=== PATIENT | female | born 1970 | race Caucasian/White ===

== ENCOUNTER 2017-11-18 11:03 | Inpatient (IN) ==
[2017-11-18] MEDS ORDERED: Ondansetron 4 MG/2 ML VIAL IVP PRN (12:36)
[2017-11-18] MEDS ORDERED: MORPHINE SUL Oral CONC 10 MG/0.5 ML ORAL.SYG SL PRN (12:36)
[2017-11-18] MEDS ORDERED: OXYCODONE Oral CONC 10 MG/0.5 ML ORAL.SYG SL PRN (12:39)
[2017-11-18] MEDS: 0.9 % Sodium Chloride 1,000 ML IVC SCH ×2 (13:10→21:33)
--- NOTE | 2017-11-18 13:51 | General Surg History&Physical ---
<CullenZachariah forrest R - Last Filed: 11/18/17 17:59> Date of Encounter: 11/18/17 Time of Encounter: 13:37 Assessment and Plan (1) Acute appendicitis Current Visit: No Status: Acute The assessment and plan as outlined above was discussed with the patient and/or family members who expressed understanding and agreement. All questions were answered. Patient reporting improvement in pain and nausea control with medication. Plan: Nonoperative management at this time, if possible, for significant periappendicular inflammation IV antibiotic-Zosyn IV fluids NPO po meds okay Comfort care and pain management PPI prophylaxis prn antiemetic ambulate ad yessy follow morning labs Qualifiers: Acute appendicitis type: with localized peritonitis Qualified Code(s): K35.3 - Acute appendicitis with localized peritonitis (2) DVT prophylaxis Current Visit: Yes Status: Acute The assessment and plan as outlined above was discussed with the patient and/or family members who expressed understanding and agreement. All questions were answered. Heparin 5000 units SQ Q12H (3) Seizure disorder Current Visit: Yes Status: Chronic The assessment and plan as outlined above was discussed with the patient and/or family members who expressed understanding and agreement. All questions were answered. Patient history of multiple seizures. Has been well controlled with medications , last seizure approximately 2 years ago. Plan: We will continue patient's home po medication (4) COPD (chronic obstructive pulmonary disease) Current Visit: Yes Status: Acute The assessment and plan as outlined above was discussed with the patient and/or family members who expressed understanding and agreement. All questions were answered. COPD controlled with Breo Ellipta inhaler at home Plan: Will start Symbicort BID DuoNeb available prn Qualifiers: Qualified Code(s): J44.9 - Chronic obstructive pulmonary disease, unspecified History of Present Illness Chief complaint: abdominal pain HPI: Ms. Gardner is a 47 year old female with history significant for COPD, seizures , CAD S/P stent placement. Presented for evaluation of abdominal pain 3 days duration, sharp in quality, located in the right lower abdomen and umbilical region. Associated anorexia, nausea without vomiting, and fevers. Last fever was yesterday measured at 101 Fahrenheit. No history of similar symptoms. Patient presented for evaluation to [place] ED. CT abdomen and pelvis was performed with findings of dilated appendix of up to 13 mm with significant induration of the surrounding mesenteric fat, suggestive of acute appendicitis. Leukocytosis at 17.3. Patient was transferred to [facility] for further evaluation and management. Patient was seen and evaluated at the bedside after arrival. She does report improved pain control with medication. Pain is worse with ambulation, improved with rest. Mild nausea. Denies vomiting, change in bowel habits, hematochezia, melena, dysuria. Past Med Surg Social Fam HX - Past Medical History Medical history: COPD, hyperlipidemia, seizures Psychiatric history: no psych history - Past Surgical History Surgical History: Additional surgical history: Aneurysm behind both eyes. Coronary artery stent - Social History Smoking Status: Current every day smoker Smokeless Tobacco Status: No Alcohol use: occasionally Drug use: none Medications and Allergies Dexlansoprazole [Dexilant] 60 mg PO DAILY 11/18/17 [History] Divalproex (12 HR) [Depakote (12 HR)] 500 mg PO BID 11/18/17 [History] Gabapentin [Neurontin] 600 mg PO TID 11/18/17 [History] Simvastatin [Zocor] 40 mg PO HS 11/18/17 [History] BuPROPion XL (24 HR) [Wellbutrin XL] 150 mg PO DAILY 11/19/17 [History] Calcium Carbonate/Vitamin D3 [Oyster Shell 250 mg + Vit D Tb] 1 tab PO BID 11/19 [History] Cholecalciferol (D-3) [Vitamin D] 5,000 unit PO DAILY 11/19/17 [History] Fluticasone/Vilanterol [Breo Ellipta 100-25 Mcg INH] 1 puff IH DAILY 11/19/17 [ History] Isosorbide DInitrate [Isosorbide Dinitrate] 20 mg PO DAILY 11/19/17 [History] Magnesium Oxide [Magnesium] 400 mg PO BID 11/19/17 [History] Meloxicam [Mobic] 7.5 mg PO DAILY 11/19/17 [History] Potassium Chloride [K-Tab ER] 20 meq PO DAILY 11/19/17 [History] 3 Allergy/AdvReac Type Severity Reaction Status Date / Time No Known Allergies Allergy Verified 11/19/17 16:34 Review of Systems All systems PM: The remainder of the systems were reviewed and are negative - Constitutional fever(s) - Gastrointestinal abdominal pain, dysphagia, loose stools (Lucid baseline), nausea, no change in bowel habits, no constipation, no diarrhea, no hematemesis, no hematochezia, no vomiting - Genitourinary Genitourinary: no dysuria, no urinary frequency, no urinary hesitancy General Surgery Exam Initial Vital Signs Temp Pulse Resp BP Pulse Ox 98.9 F 80 18 125/86 97 11/18/17 12:30 11/18/17 12:30 11/18/17 12:30 11/18/17 12:30 11/18/17 12:30 - General physical appearance well developed, well nourished, no distress, moderate pain, obese, other ( Hirsutism) - Eyes PERRL - ENT dry mucosa, atraumatic, normocephalic - Neck trachea midline - Respiratory normal expansion, normal respiratory effort, clear to auscultation - Cardiovascular Cardiovascular exam: Present: RRR - Abdomen Abdomen general surgery: Present: bowel sounds present, soft, tender, guarding, rebound, surgical scars (Well-healed prior section). Absent: distended Abdominal Tenderness: Present: RLQ - Genitourinary Present: other (No CVA tenderness) - Integumentary Integumentary general surgery: Present: warm and dry - Neurologic Present: CN 2-12 grossly intact - Musculoskeletal Present: normal posture - Psychiatric Psychiatric general surgery: Present: A&Ox3, speech is normal, memory intact Results - Labs All other labs normal. <Juvencio Krishna - Last Filed: 11/19/17 18:31> Date of Encounter: 11/18/17 Assessment and Plan (1) DVT prophylaxis Current Visit: Yes Status: Acute The assessment and plan as outlined above was discussed with the patient and/or family members who expressed understanding and agreement. All questions were answered. (2) Seizure disorder Current Visit: Yes Status: Chronic The assessment and plan as outlined above was discussed with the patient and/or family members who expressed understanding and agreement. All questions were answered. (3) COPD (chronic obstructive pulmonary disease) Current Visit: Yes Status: Acute The assessment and plan as outlined above was discussed with the patient and/or family members who expressed understanding and agreement. All questions were answered. Qualifiers: Qualified Code(s): J44.9 - Chronic obstructive pulmonary disease, unspecified (4) Perforated appendicitis Current Visit: Yes Status: Acute The assessment and plan as outlined above was discussed with the patient and/or family members who expressed understanding and agreement. All questions were answered. (5) Electrolyte imbalance Current Visit: Yes Status: Acute The assessment and plan as outlined above was discussed with the patient and/or family members who expressed understanding and agreement. All questions were answered. History of Present Illness HPI: Ms. Gardner is a 47 year old female Review of Systems All systems PM: The remainder of the systems were reviewed and are negative General Surgery Exam Initial Vital Signs Temp Pulse Resp BP Pulse Ox 98.9 F 80 18 125/86 97 11/18/17 12:30 11/18/17 12:30 11/18/17 12:30 11/18/17 12:30 11/18/17 12:30 Results - Labs 11/19/17 03:51 11/19/17 03:51 Abnormal lab results WBC 13.6 K/mcL (4.3-11.1) H 11/19/17 03:51 RBC 3.66 M/mcL (3.82-4.97) L 11/19/17 03:51 Hgb 11.4 g/dL (11.5-15.4) L D 11/19/17 03:51 Hct 35.0 % (35.3-44.9) L 11/19/17 03:51 Neutrophils # 9.3 K/mcL (1.6-8.9) H 11/19/17 03:51 PT 13.2 Seconds (9.4-12.1) H 11/19/17 03:51 Potassium 3.0 mEq/L (3.5-5.1) L 11/19/17 03:51 Chloride 113 mEq/L (98-107) H 11/19/17 03:51 Carbon Dioxide 21 mEq/L (23-29) L 11/19/17 03:51 Creatinine 0.56 mg/dL (0.60-1.20) L 11/19/17 03:51 Glucose 67 mg/dL (70-105) L 11/19/17 03:51 Calcium 7.9 mg/dL (8.6-10.3) L 11/19/17 03:51 Diabetes panel 11/19/17 Range/Units 03:51 Sodium 142 (136-145) mEq/L Potassium 3.0 L (3.5-5.1) mEq/L Chloride 113 H (98-107) mEq/L Carbon Dioxide 21 L (23-29) mEq/L BUN 10 (6-20) mg/dL Creatinine 0.56 L (0.60-1.20) mg/dL Glucose 67 L (70-105) mg/dL Calcium 7.9 L (8.6-10.3) mg/dL Calcium panel 11/19/17 Range/Units 03:51 Calcium 7.9 L (8.6-10.3) mg/dL Pituitary panel 11/19/17 Range/Units 03:51 Sodium 142 (136-145) mEq/L Potassium 3.0 L (3.5-5.1) mEq/L Chloride 113 H (98-107) mEq/L Carbon Dioxide 21 L (23-29) mEq/L BUN 10 (6-20) mg/dL Creatinine 0.56 L (0.60-1.20) mg/dL Glucose 67 L (70-105) mg/dL Calcium 7.9 L (8.6-10.3) mg/dL Adrenal panel 11/19/17 Range/Units 03:51 Sodium 142 (136-145) mEq/L Potassium 3.0 L (3.5-5.1) mEq/L Chloride 113 H (98-107) mEq/L Carbon Dioxide 21 L (23-29) mEq/L BUN 10 (6-20) mg/dL Creatinine 0.56 L (0.60-1.20) mg/dL Glucose 67 L (70-105) mg/dL Calcium 7.9 L (8.6-10.3) mg/dL All other labs normal. - Attending Attestation I examined this patient and my medical decision-making was reviewed with the Resident Physician. I agree with the documented findings, disposition and treatment plan as described except to the extent set forth below. I reviewed the above assessment and evaluation and agree with the above plan. Three-day history of umbilical and right lower quadrant abdominal pain sharp in nature. No vomiting and no rectal bleeding noted. CT scan shows evidence of acute appendicitis with evidence of a phlegmon. The most appropriate course would be to attempt IV antibiotics to help calm the inflammatory process down given the extensive inflammation and the concern for an extensive surgical procedure versus a colectomy if surgery was necessary. We will continue to monitor closely. If patients source to tolerate this process then we may slowly begin to advance her diet over the next 24-48 hrs.
[2017-11-18] MEDS ORDERED: Ipratropium/Albuterol Neb 3 ML IH PRN (15:26)
[2017-11-18] MEDS: Ketorolac 30 MG/ML VIAL IVP SCH ×2 (15:32→17:35)
[2017-11-18] MEDS: Piperacillin/Tazobactam 3.375 GM in 0.9 % Sodium Chloride Mini Bag 100 ML IVPB SCH (15:33)
[2017-11-18] MEDS: *HR* Heparin 5,000 UNIT/ML VIAL SQ SCH (17:33)
[2017-11-18] MEDS ORDERED: Ketorolac 30 MG/ML VIAL IM SCH (18:00)
[2017-11-18] MEDS: Budesonide/Formoterol 160/4.5 1 PUFF INH IH SCH (20:07)
[2017-11-18] MEDS ORDERED: Gabapentin 300 MG CAPSULE PO SCH (21:00)
[2017-11-18] MEDS: Gabapentin 300 MG CAPSULE PO SCH (21:32)
[2017-11-18] MEDS: Divalproex (12 HR) 500 MG TABLET PO SCH (21:32)
[2017-11-19] MEDS: Ketorolac 30 MG/ML VIAL IVP SCH ×4 (00:11→18:02)
[2017-11-19] MEDS: Piperacillin/Tazobactam 3.375 GM in 0.9 % Sodium Chloride Mini Bag 100 ML IVPB SCH ×3 (00:11→18:01)
[2017-11-19 04:20] LABS: Basophils % 0.3 %; Eosinophils # 0.1 K/mcL (0.0-0.6); Eosinophils % 0.6 %; Hemoglobin 11.4 g/dL (11.5-15.4); Immature Granulocytes % 0.4 % (0-4); Lymphocytes % 21.9 %; Mean Corpuscular HGB Conc 32.6 g/dL (31.6-35.5); Mean Corpuscular Hemoglobin 31.1 pg (28.0-33.3); Mean Corpuscular Volume 95.6 fL (83.0-100.0); Mean Platelet Volume 10.1 fL (9.4-12.4); Monocytes # 1.2 K/mcL (0.0-1.3); Monocytes % 8.4 %; Neutrophils # 9.3 K/mcL (1.6-8.9); Platelet Count 194 K/mcL (140-400); Red Blood Count 3.66 M/mcL (3.82-4.97); Red Cell Distribution Width 13.2 % (11.5-14.5); Segmented Neutrophils % 68.4 %
[2017-11-19 04:35] LABS: INR 1.2; Prothrombin Time 13.2 Seconds (9.4-12.1)
[2017-11-19 04:44] LABS: BUN/Creatinine Ratio 18 (6-26); Blood Urea Nitrogen 10 mg/dL (6-20); Calcium 7.9 mg/dL (8.6-10.3); Carbon Dioxide 21 mEq/L (23-29); Chloride 113 mEq/L (98-107); Glucose 67 mg/dL (70-105); Osmolality,Calculated 291 (280-300); Sodium 142 mEq/L (136-145); eGFR For Non-African Americans > 60 (> 60)
[2017-11-19] MEDS: *HR* Heparin 5,000 UNIT/ML VIAL SQ SCH ×2 (05:52→18:00)
[2017-11-19] MEDS: 0.9 % Sodium Chloride 1,000 ML IVC SCH (05:53)
[2017-11-19] MEDS: Budesonide/Formoterol 160/4.5 1 PUFF INH IH SCH ×2 (07:13→20:29)
[2017-11-19] MEDS: Divalproex (12 HR) 500 MG TABLET PO SCH ×2 (08:17→21:04)
[2017-11-19] MEDS: Pantoprazole 40 MG VIAL IVP SCH (08:17)
[2017-11-19] MEDS: Gabapentin 300 MG CAPSULE PO SCH ×2 (08:17→21:04)
[2017-11-19] MEDS ORDERED: 0.9 % Sodium Chloride 1,000 ML IVC SCH (11:41)
--- NOTE | 2017-11-19 11:44 | General Surgery Progress Note ---
<JalenAngie Christian - Last Filed: 11/19/17 11:42> Date of Encounter: 11/19/17 Time of Encounter: 11:42 - Assessment and Plan (1) Perforated appendicitis Current Visit: Yes Status: Acute Patient's exam is improved from yesterday. Continue IV antibiotics for another 24 to 48 hours pending clinical course. Okay to start clear liquid diet. Will reduce maintenance IV fluids ambulate as tolerated continue G.I. and DVT prophylaxis incentive spirometry 10 times Q hour while awake serial abdominal exams repeat a.m. labs (2) DVT prophylaxis Current Visit: Yes Status: Acute Heparin 5000 units sub Q BID EP CDs ambulate (3) Seizure disorder Current Visit: Yes Status: Chronic Continue home medications and seizure precautions (4) COPD (chronic obstructive pulmonary disease) Current Visit: Yes Status: Acute Schedule duonebs and aggressive pulmonary toileting Qualifiers: Qualified Code(s): J44.9 - Chronic obstructive pulmonary disease, unspecified (5) Electrolyte imbalance Current Visit: Yes Status: Acute Replace potassium Subjective Patient reports: no new complaints, feels better, pain is less, voiding w/o difficulty, flatus, no bowel movement, afebrile Objective Vital Signs - Last 8 Hours Temp Pulse Resp BP Pulse Ox 11/19/17 10:19 98.2 F 87 15 125/74 96 11/19/17 07:15 18 97 11/19/17 06:53 97.9 F 78 15 117/78 95 11/19/17 04:32 98.2 F 80 16 138/83 96 Intake and Output 11/18/17 11/19/17 11/19/17 23:59 07:59 15:59 Intake Total 1100 / 1100 1100 / 1100 0 / 0 Output Total 0 / 0 450 / 450 Balance 1100 / 1100 650 / 650 0 / 0 Intake: IV Fluids 1100 / 1100 1100 / 1100 0.9 % Sodium Chloride 1,000 ML 1000 / 1000 1000 / 1000 @ 125 mls/hr IVC .Q8H ERIC Rx#: [id number] Zosyn 3.375 GM In 0.9 % Sodium 100 / 100 100 / 100 Chloride (Mini-Bag +) 100 ML @ 25 mls/hr IVPB Q8HR ERIC Rx#: [id number] Oral 0 / 0 0 / 0 0 / 0 Output: Urine 0 / 0 450 / 450 Other: Meal NPO DINNER NPO Percent of Meal Consumed 0% 0% # Voids 1 # Bowel Movements 0 0 Weight 108.9 kg Blood Glucose* 77 81 Patient Weight 11/19/17 23:59 Weight 108.9 kg - General physical appearance no distress, no pain - ENT normal nares, normal mucosa, poor [facility], dentures - Cardiovascular Cardiovascular exam: Present: RRR - Abdomen Abdomen: Present: bowel sounds present, soft, non tender - Integumentary no rash, no growths, no abnormal pigmentation - Neurologic CN 2-12 grossly intact, normal coordination - Musculoskeletal normal gait, normal posture - Psychiatric oriented to time, oriented to person, oriented to place, speech is normal, memory intact - Labs 11/19/17 03:51 11/19/17 03:51 Diabetes panel 11/19/17 Range/Units 03:51 Sodium 142 (136-145) mEq/L Potassium 3.0 L (3.5-5.1) mEq/L Chloride 113 H (98-107) mEq/L Carbon Dioxide 21 L (23-29) mEq/L BUN 10 (6-20) mg/dL Creatinine 0.56 L (0.60-1.20) mg/dL Glucose 67 L (70-105) mg/dL Calcium 7.9 L (8.6-10.3) mg/dL Calcium panel 11/19/17 Range/Units 03:51 Calcium 7.9 L (8.6-10.3) mg/dL Pituitary panel 11/19/17 Range/Units 03:51 Sodium 142 (136-145) mEq/L Potassium 3.0 L (3.5-5.1) mEq/L Chloride 113 H (98-107) mEq/L Carbon Dioxide 21 L (23-29) mEq/L BUN 10 (6-20) mg/dL Creatinine 0.56 L (0.60-1.20) mg/dL Glucose 67 L (70-105) mg/dL Calcium 7.9 L (8.6-10.3) mg/dL Adrenal panel 11/19/17 Range/Units 03:51 Sodium 142 (136-145) mEq/L Potassium 3.0 L (3.5-5.1) mEq/L Chloride 113 H (98-107) mEq/L Carbon Dioxide 21 L (23-29) mEq/L BUN 10 (6-20) mg/dL Creatinine 0.56 L (0.60-1.20) mg/dL Glucose 67 L (70-105) mg/dL Calcium 7.9 L (8.6-10.3) mg/dL Consult Discharge Plan - Plan Referrals: Jose Elias Juan DO [Non-Partnered Physician] - <Juvencio Krishna Belle - Last Filed: 11/19/17 19:31> Date of Encounter: 11/19/17 - Assessment and Plan (1) DVT prophylaxis Current Visit: Yes Status: Acute (2) Seizure disorder Current Visit: Yes Status: Chronic (3) COPD (chronic obstructive pulmonary disease) Current Visit: Yes Status: Acute Qualifiers: Qualified Code(s): J44.9 - Chronic obstructive pulmonary disease, unspecified (4) Perforated appendicitis Current Visit: Yes Status: Acute (5) Electrolyte imbalance Current Visit: Yes Status: Acute Objective Vital Signs - Last 8 Hours Temp Pulse Resp BP Pulse Ox 11/19/17 19:28 98.8 F 88 15 136/86 96 11/19/17 14:13 98.2 F 81 15 133/84 97 Intake and Output 11/19/17 11/19/17 11/19/17 07:59 15:59 23:59 Intake Total 1100 / 1100 100 / 100 720 / 720 Output Total 450 / 450 Balance 650 / 650 100 / 100 720 / 720 Intake: IV Fluids 1100 / 1100 100 / 100 0.9 % Sodium Chloride 1,000 ML 1000 / 1000 @ 125 mls/hr IVC .Q8H ERIC Rx#: [id number] Zosyn 3.375 GM In 0.9 % Sodium 100 / 100 100 / 100 Chloride (Mini-Bag +) 100 ML @ 25 mls/hr IVPB Q8HR ERIC Rx#: [id number] Oral 0 / 0 0 / 0 720 / 720 Output: Urine 450 / 450 Other: Meal NPO Clear Liq Percent of Meal Consumed 0% # Voids 1 1 # Bowel Movements 0 Weight 108.9 kg Blood Glucose* 77 81 Patient Weight 11/19/17 23:59 Weight 108.9 kg - Labs 11/19/17 03:51 11/19/17 03:51 Diabetes panel 11/19/17 Range/Units 03:51 Sodium 142 (136-145) mEq/L Potassium 3.0 L (3.5-5.1) mEq/L Chloride 113 H (98-107) mEq/L Carbon Dioxide 21 L (23-29) mEq/L BUN 10 (6-20) mg/dL Creatinine 0.56 L (0.60-1.20) mg/dL Glucose 67 L (70-105) mg/dL Calcium 7.9 L (8.6-10.3) mg/dL Calcium panel 11/19/17 Range/Units 03:51 Calcium 7.9 L (8.6-10.3) mg/dL Pituitary panel 11/19/17 Range/Units 03:51 Sodium 142 (136-145) mEq/L Potassium 3.0 L (3.5-5.1) mEq/L Chloride 113 H (98-107) mEq/L Carbon Dioxide 21 L (23-29) mEq/L BUN 10 (6-20) mg/dL Creatinine 0.56 L (0.60-1.20) mg/dL Glucose 67 L (70-105) mg/dL Calcium 7.9 L (8.6-10.3) mg/dL Adrenal panel 11/19/17 Range/Units 03:51 Sodium 142 (136-145) mEq/L Potassium 3.0 L (3.5-5.1) mEq/L Chloride 113 H (98-107) mEq/L Carbon Dioxide 21 L (23-29) mEq/L BUN 10 (6-20) mg/dL Creatinine 0.56 L (0.60-1.20) mg/dL Glucose 67 L (70-105) mg/dL Calcium 7.9 L (8.6-10.3) mg/dL - Attending Attestation I have personally performed a face to face evaluation on this patient. I have reviewed and agree with the care plan. History and Exam by me shows: I reviewed the above assessment and evaluation and agree with the above plan. Patient states that she is not having any abdominal pain at this time. No nausea or vomiting and tolerating clears this morning and afternoon. On examination she is minimally tender to palpation. Will advance her diet first full liquids in the morning. Likely will be able to be advanced to soft foods and possible discharge tomorrow afternoon.
[2017-11-19] MEDS ORDERED: D5 IVPB ONE (11:46)
[2017-11-19] MEDS ORDERED: POTASSIUM CHLORIDE IVPB ONE (11:46)
[2017-11-19] MEDS ORDERED: WATER IVPB ONE (11:46)
[2017-11-19] MEDS ORDERED: LIDOCAINE 1% IVPB ONE (11:46)
[2017-11-19] MEDS ORDERED: Potassium Chloride 40 MEQ, Lidocaine 1% 2 ML in D5% in Water 500 ML IVPB ONE (13:44)
[2017-11-20] MEDS: Piperacillin/Tazobactam 3.375 GM in 0.9 % Sodium Chloride Mini Bag 100 ML IVPB SCH ×2 (00:42→09:19)
[2017-11-20] MEDS: Ketorolac 30 MG/ML VIAL IVP SCH ×3 (00:43→11:35)
[2017-11-20 04:43] LABS: Hematocrit 33.1 % (35.3-44.9); Hemoglobin 10.7 g/dL (11.5-15.4); Mean Corpuscular HGB Conc 32.3 g/dL (31.6-35.5); Mean Corpuscular Hemoglobin 30.7 pg (28.0-33.3); Mean Corpuscular Volume 94.8 fL (83.0-100.0); Mean Platelet Volume 10.3 fL (9.4-12.4); Platelet Count 211 K/mcL (140-400); Red Blood Count 3.49 M/mcL (3.82-4.97); Red Cell Distribution Width 13.2 % (11.5-14.5); Segmented Neutrophils % 64.2 %
[2017-11-20 04:44] LABS: Basophils % 0.3 %; Eosinophils # 0.1 K/mcL (0.0-0.6); Immature Granulocytes % 0.3 % (0-4); Lymphocytes # 2.5 K/mcL (0.6-4.6); Lymphocytes % 25.6 %; Monocytes # 0.8 K/mcL (0.0-1.3); Monocytes % 8.6 %; Neutrophils # 6.2 K/mcL (1.6-8.9)
[2017-11-20 04:53] LABS: BUN/Creatinine Ratio 13 (6-26); Blood Urea Nitrogen 7 mg/dL (6-20); Calcium 8.2 mg/dL (8.6-10.3); Carbon Dioxide 22 mEq/L (23-29); Chloride 115 mEq/L (98-107); Glucose 91 mg/dL (70-105); Osmolality,Calculated 294 (280-300); Potassium 3.2 mEq/L (3.5-5.1); Sodium 143 mEq/L (136-145); eGFR For Non-African Americans > 60 (> 60)
[2017-11-20] MEDS: *HR* Heparin 5,000 UNIT/ML VIAL SQ SCH (06:00)
[2017-11-20 06:44] VITALS: BP 138/69
[2017-11-20] MEDS ORDERED: Potassium Chloride 40 MEQ, Lidocaine 1% 2 ML in D5% in Water 500 ML IVPB ONE (08:23)
--- NOTE | 2017-11-20 08:37 | Discharge Summary ---
Date of Encounter: 11/20/17 Time of Encounter: 08:15 - Discharge Diagnosis (1) Perforated appendicitis Priority: Primary Status: Acute (2) DVT prophylaxis Priority: Secondary Status: Acute (3) Seizure disorder Priority: Secondary Status: Chronic (4) COPD (chronic obstructive pulmonary disease) Priority: Secondary Status: Acute Qualifiers: COPD type: unspecified COPD Qualified Code(s): J44.9 - Chronic obstructive pulmonary disease, unspecified (5) Electrolyte imbalance Priority: Secondary Status: Acute General Surgery Exam Initial Vital Signs Temp Pulse Resp BP Pulse Ox 98.9 F 80 18 125/86 97 11/18/17 12:30 11/18/17 12:30 11/18/17 12:30 11/18/17 12:30 11/18/17 12:30 Vital Signs Temp Pulse Resp BP Pulse Ox 11/20/17 06:43 97.6 F 76 15 138/69 97 11/20/17 04:23 98.1 F 77 14 144/88 98 11/19/17 20:29 16 98 11/19/17 19:28 98.8 F 88 15 136/86 96 11/19/17 14:13 98.2 F 81 15 133/84 97 11/19/17 10:19 98.2 F 87 15 125/74 96 Intake and Output 11/19/17 11/20/17 11/20/17 23:59 07:59 15:59 Intake Total 1542 / 1542 300 / 300 Output Total 200 / 200 300 / 300 Balance 1342 / 1342 0 / 0 Intake: IV Fluids 822 / 822 100 / 100 Zosyn 3.375 GM In 0.9 % Sodium 100 / 100 100 / 100 Chloride (Mini-Bag +) 100 ML @ 25 mls/hr IVPB Q8HR ERIC Rx#: [id number] Potassium Chloride 10 mEq/100mL 200 / 200 10 meq In 100 ml @ 100 mls/hr IVPB Q1H ERIC Rx#:[id number] KCl 40 MEQ Xylocaine 2 ML In 522 / 522 Dextrose 5% 500 ML @ 130.5 mls/ hr IVPB ONCE ONE Rx#:[id number] Oral 720 / 720 200 / 200 Output: Urine 200 / 200 300 / 300 Other: Meal Clear Liq Stool Size Moderate Stool Consistency soft Stool Color Brown # Voids 2 # Bowel Movements 0 Weight 108.8 kg Patient Weight 11/20/17 23:59 Weight 108.8 kg VITAL SIGNS: Reviewed. See [facility] GENERAL: In no apparent distress. HEENT: Normocephalic, atraumatic, pupils are equal and reactive, extraocular motions intact, oropharynx is pink and moist, edentulous, there is no neck adenopathy or JVD noted. CHEST/RESPIRATORY: The thorax is free from signs of trauma. Lung sounds: clear to auscultation, normal respiratory effort CARDIAC: Regular rate and rhythm. Normal S1 and S2, without murmurs, gallops, or rubs. VASCULAR: No Edema. 2+ peripheral pulses. ABDOMEN: soft, active bowel sounds, nontender MUSCULOSKELETAL: Good range of motion of all major joints. Extremities without clubbing, cyanosis or edema. NEUROLOGIC EXAM: Alert and oriented x 3. Speech normal. Follows commands. PSYCHIATRIC: Mood normal. SKIN: No rash or lesions. - Hospital Course Hospital course: Ms. Gardner is a 47 year old female who was admitted for right lower quadrant pain. Her imaging was consistent with perforated appendicitis with phlegmon. She was treated with IV antibiotics and supportive care. She states her abdominal discomfort is completely resolved. She is afebrile and her vital signs are stable. She is tolerating her diet without nausea or vomiting and her white blood cell count has normalized. We will begin discharge planning to home with a follow-up in the office in approximately 4 weeks to schedule an elective laparoscopic appendectomy. - Time Spent with Patient Total time spent providing and/or coordinating discharge services: - Discharge Medications Prescriptions: Amoxicillin/Clavulanate [Augmentin] 875 mg PO BIDWM #14 tablet Home Medications: Dexlansoprazole [Dexilant] 60 mg PO DAILY 11/18/17 [History] Divalproex (12 HR) [Depakote (12 HR)] 500 mg PO BID 11/18/17 [History] Gabapentin [Neurontin] 600 mg PO TID 11/18/17 [History] Simvastatin [Zocor] 40 mg PO HS 11/18/17 [History] BuPROPion XL (24 HR) [Wellbutrin Xl] 150 mg PO DAILY 11/19/17 [History] Calcium Carbonate/Vitamin D3 [Oyster Shell 250 mg + Vit D Tb] 1 tab PO BID 11/19 [History] Cholecalciferol (D-3) [Vitamin D] 5,000 unit PO DAILY 11/19/17 [History] Fluticasone/Vilanterol [Breo Ellipta 100-25 Mcg INH] 1 puff IH DAILY 11/19/17 [ History] Isosorbide DInitrate [Isosorbide Dinitrate] 20 mg PO DAILY 11/19/17 [History] Magnesium Oxide [Magnesium] 400 mg PO BID 11/19/17 [History] Meloxicam [Mobic] 7.5 mg PO DAILY 11/19/17 [History] Potassium Chloride [K-Tab ER] 20 meq PO DAILY 11/19/17 [History] Amoxicillin/Clavulanate [Augmentin] 875 mg PO BIDWM #14 tablet 11/20/17 [Rx] Allergies/Adverse Reactions: 3 Allergy/AdvReac Type Severity Reaction Status Date / Time No Known Allergies Allergy Verified 11/19/17 16:34 Date of admission: 11/18/17 15:31 Primary care physician: PCP NONE Discharging clinician: Juvencio Rao) Anticipated date of discharge: 11/20/17 Labs on day of discharge: Labs from last 24 hours 11/20/17 11/20/17 11/19/17 03:47 03:47 10:55 WBC 9.7 RBC 3.49 L Hgb 10.7 L Hct 33.1 L MCV 94.8 MCH 30.7 MCHC 32.3 RDW 13.2 Plt Count 211 MPV 10.3 Immature Gran % 0.3 Seg Neutrophils % 64.2 Lymphocytes % 25.6 Monocytes % 8.6 Eosinophils % 1.0 Basophils % 0.3 Neutrophils # 6.2 Lymphocytes # 2.5 Monocytes # 0.8 Eosinophils # 0.1 Basophils # 0.0 Sodium 143 Potassium 3.2 L Chloride 115 H Carbon Dioxide 22 L BUN 7 Creatinine 0.53 L Est GFR ( Amer) > 60 Est GFR (Non-Af Amer) > 60 BUN/Creatinine Ratio 13 Glucose 91 POC Glucose 81 Calculated Osmolality 294 Calcium 8.2 L - Patient Status Disposition: Home, Self-Care Condition: Good Functional capacity at discharge: independent ambulation Overall status at discharge: patient is progressing back to baseline - Discharge Instructions Instructions: Appendicitis (DC) Follow Up With: Jose Elias Juan DO [Non-Partnered Physician] - Juvencio Krishna MD [Partnered Physician] - 12/18/17 9:00 am (Schedule laproscopic appendectomy) Additional Instructions: Take your antibiotics as directed. Do not stop your antibiotics without talking to your provider. If you were prescribed Metronidazole, Do not drink alcohol while taking metronidazole. Drinking alcohol while taking metronidazole can cause violent abdominal pain and vomiting. Refrain from alcohol for 48 hours after stopping metronidazole. Return/call the office if you have fever higher than 100.5 associated with new or worsening abdominal discomfort. Otherwise follow-up as directed to schedule laparoscopic appendectomy. - Diet and Activity Activity: increase activity as tolerated Diet: advance to your usual diet
[2017-11-20] MEDS: Divalproex (12 HR) 500 MG TABLET PO SCH (09:19)
[2017-11-20] MEDS: Gabapentin 300 MG CAPSULE PO SCH (09:19)
[2017-11-20] MEDS: Pantoprazole 40 MG VIAL IVP SCH (09:20)
[2017-11-20] MEDS: Budesonide/Formoterol 160/4.5 1 PUFF INH IH SCH (10:54)
== END 2017-11-20 14:10 | disposition home or self-care (01) | DRG 372 ==
LOC: 3ANU
PROVIDERS: ADMIT Surgery; ATTEND Surgery

== ENCOUNTER 2018-02-22 14:42 | Observation (INO) ==
--- NOTE | 2018-02-22 17:27 | General Surg History&Physical ---
Date of Encounter: 02/22/18 Time of Encounter: 17:24 Assessment and Plan (1) Leukocytosis Current Visit: Yes Status: Acute The assessment and plan as outlined above was discussed with the patient and/or family members who expressed understanding and agreement. All questions were answered. continue with abx, zosyn Qualifiers: Leukocytosis type: unspecified Qualified Code(s): D72.829 - Elevated white blood cell count, unspecified (2) CAD (coronary artery disease) Current Visit: Yes Status: Chronic The assessment and plan as outlined above was discussed with the patient and/or family members who expressed understanding and agreement. All questions were answered. patient with CAD and history cardiac stent placement, not on aspirin Qualifiers: Coronary Disease-Associated Artery/Lesion type: [place] artery [place] vs. transplanted heart: [place] heart Associated angina: without angina Qualified Code(s): I25.10 - Atherosclerotic heart disease of [place] coronary artery without angina pectoris (3) DVT prophylaxis Current Visit: No Status: Acute The assessment and plan as outlined above was discussed with the patient and/or family members who expressed understanding and agreement. All questions were answered. EPCD (4) COPD (chronic obstructive pulmonary disease) Current Visit: No Status: Acute The assessment and plan as outlined above was discussed with the patient and/or family members who expressed understanding and agreement. All questions were answered. pulmonary toilet, IS, aerosols Qualifiers: COPD type: unspecified COPD Qualified Code(s): J44.9 - Chronic obstructive pulmonary disease, unspecified (5) Acute appendicitis Current Visit: No Status: Acute The assessment and plan as outlined above was discussed with the patient and/or family members who expressed understanding and agreement. All questions were answered. discussed with patient I have personally reviewed her CT images and she has recurrent appendicitis. Will plan laparoscopic appendectomy, possible open, risks and benefits discussed and she wishes to proceed npo prn pain control gi/dvt prophylaxis antibiotics check ekg/ test antiemetics prn ivf hydration ok continue home meds Qualifiers: Acute appendicitis type: with localized peritonitis Appendicitis gangrene presence: without gangrene Appendicitis perforation presence: without perforation Appendicitis abscess presence: without abscess Qualified Code(s): K35.30 - Acute appendicitis with localized peritonitis, without perforation or gangrene History of Present Illness Chief complaint: rlq abdominal pain HPI: Ms. Gardner is a 47 year old female with acute uncomplicated appendicitis in November of 2017 treated conservatively with antibiotics. Patient had improved. This am she had acute onset sharp stabbing RLQ pain without radiation similar to the pain she experienced in november. Some nausea, no emesis. No fevers, chills or night sweats. No dysuria. She proceeded to [facility] where a CT scan was done showing recurrent acute appendicitis. She was transfered to [facility] for further care. History of CAD, cardiac stents, aneurysms (b/l craniotomies?), history seizures - last seizure 2005 per patient. Past Med Surg Social Fam HX - Past Medical History Source: patient Medical history: COPD, coronary artery disease, GERD, hyperlipidemia, kidney stones, seizures, other ("aneurysms behind both eyes", obesity, hx appendicitis -treated conservatively) Psychiatric history: no psych history - Past Surgical History Surgical History: (x2), other (bilateral craniotomies/aneurysm surgery, cardiac cath with stent placement) Additional surgical history: Aneurysm behind both eyes. Coronary artery stent - Social History Smoking Status: Current every day smoker Smokeless Tobacco Status: No Alcohol use: occasionally Drug use: none - Family History Grandmother History Unknown: Yes Medications and Allergies Dexlansoprazole [Dexilant] 60 mg PO DAILY 11/18/17 [History] Divalproex (12 HR) [Depakote (12 HR)] 500 mg PO BID 11/18/17 [History] Gabapentin [Neurontin] 600 mg PO TID 11/18/17 [History] Simvastatin [Zocor] 40 mg PO HS 11/18/17 [History] BuPROPion XL (24 HR) [Wellbutrin Xl] 150 mg PO DAILY 11/19/17 [History] Calcium Carbonate/Vitamin D3 [Oyster Shell 250 mg + Vit D Tb] 1 tab PO BID 11/19/17 [History] Cholecalciferol (D-3) [Vitamin D] 5,000 unit PO DAILY 11/19/17 [History] Fluticasone/Vilanterol [Breo Ellipta 100-25 Mcg INH] 1 puff IH DAILY 11/19/17 [History] Isosorbide DInitrate [Isosorbide Dinitrate] 20 mg PO DAILY 11/19/17 [History] Magnesium Oxide [Magnesium] 400 mg PO BID 11/19/17 [History] Meloxicam [Mobic] 7.5 mg PO DAILY 11/19/17 [History] Potassium Chloride [K-Tab ER] 20 meq PO DAILY 11/19/17 [History] Allergy/AdvReac Type Severity Reaction Status Date / Time No Known Allergies Allergy Verified 11/19/17 16:34 Review of Systems All systems PM: reviewed and no additional remarkable complaints except as stated All systems PM: The remainder of the systems were reviewed and are negative General Surgery Exam Initial Vital Signs Temp Pulse Resp BP Pulse Ox 99.1 F 88 18 115/78 98 02/22/18 16:15 02/22/18 16:15 02/22/18 16:15 02/22/18 16:15 02/22/18 16:15 - General physical appearance well developed, well nourished, no distress, obese - Eyes PERRL, normal ocular movement - ENT normal mucosa - Neck other (hirsuitism) - Respiratory normal expansion, clear to auscultation, other (audible wheezing) - Cardiovascular Cardiovascular exam: Present: RRR, no murmurs/rubs/gallops - Abdomen Abdomen general surgery: Present: bowel sounds present, soft, tender. Absent: distended, guarding, rebound Abdominal Tenderness: Present: RLQ - Integumentary Integumentary general surgery: Present: warm and dry, no abnormal pigmentation - Neurologic Present: CN 2-12 grossly intact - Musculoskeletal Present: normal gait, normal posture - Psychiatric Psychiatric general surgery: Present: A&Ox3, speech is normal Results - Labs All other labs normal. - Imaging CT scan - abdomen: report reviewed, image reviewed CT scan - pelvis: report reviewed, image reviewed (WBC 15.8, Hb 15.5, plt 201, Cr 0.69)
[2018-02-22] MEDS ORDERED: Ondansetron 4 MG/2 ML VIAL IVP PRN (17:36)
[2018-02-22] MEDS ORDERED: *HR* Metoprolol 5 MG/5 ML VIAL IVP PRN ×2 (17:36→20:42)
[2018-02-22] MEDS ORDERED: Naloxone 0.4 MG/ML INJ IVP PRN ×2 (17:36→20:42)
[2018-02-22] MEDS ORDERED: *HR* Promethazine 25 MG/ML VIAL IVP PRN ×2 (17:36→20:42)
[2018-02-22] MEDS ORDERED: OXYCODONE Oral CONC 10 MG/0.5 ML ORAL.SYG SL PRN ×2 (17:38→20:42)
[2018-02-22] MEDS ORDERED: *HR* OxyCODONE/APAP 5/325 TABLET PO PRN (17:38)
--- NOTE | 2018-02-22 17:42 | Anesthesia Evaluation PreOp ---
Date of Encounter: 02/22/18 Time of Encounter: 18:28 - Past History Planned Operation: Laparoscopic appendectomy Cardiac History: HTN, Hyperlipidemia, Cardiac Stent Pulmonary History: Smoker, COPD CANT HOOKER History: Seizures, Other (brain aneurysms) Other Medical History: Renal (stones), GERD, Other (BMI 44) Anesthesia History: No Prior Anesthetic Complications, Past Anesthesia (c- section x2, brain aneurysm surgery x2, tubal) Alcohol Use: occasionally Drug use: none Medications and Allergies Dexlansoprazole [Dexilant] 60 mg PO DAILY 11/18/17 [History] Divalproex (12 HR) [Depakote (12 HR)] 500 mg PO BID 11/18/17 [History] Gabapentin [Neurontin] 600 mg PO TID 11/18/17 [History] Simvastatin [Zocor] 40 mg PO HS 11/18/17 [History] BuPROPion XL (24 HR) [Wellbutrin Xl] 150 mg PO DAILY 11/19/17 [History] Calcium Carbonate/Vitamin D3 [Oyster Shell 250 mg + Vit D Tb] 1 tab PO BID 11/09 03/28 [History] Cholecalciferol (D-3) [Vitamin D] 5,000 unit PO DAILY 11/19/17 [History] Fluticasone/Vilanterol [Breo Ellipta 100-25 Mcg INH] 1 puff IH DAILY 11/19/17 [History] Isosorbide DInitrate [Isosorbide Dinitrate] 20 mg PO DAILY 11/19/17 [History] Magnesium Oxide [Magnesium] 400 mg PO BID 11/19/17 [History] Meloxicam [Mobic] 7.5 mg PO DAILY 11/19/17 [History] Potassium Chloride [K-Tab ER] 20 meq PO DAILY 11/19/17 [History] Allergy/AdvReac Type Severity Reaction Status Date / Time No Known Allergies Allergy Verified 11/19/17 16:34 - Meds/Allergy Pre-op Review Medications Reviewed: Yes Allergies Reviewed: Yes Beta Blockers on Current Med List: No Anesthesia Results - Labs Laboratory Tests 02/22/18 02/22/18 14:07 14:07 WBC 15.8 H Hgb 15.5 H Hct 46.9 H Plt Count 201 Sodium 140 Potassium 4.3 Chloride 103 Carbon Dioxide 28 BUN 15 Creatinine 0.69 Est GFR ( Amer) > 60 Est GFR (Non-Af Amer) > 60 BUN/Creatinine Ratio 22 Glucose 121 H Calculated Osmolality 292 Calcium 9.1 Laboratory Tests 02/22/18 17:25 Urine Test Negative Anesthesia Exam Last Vital Signs Temp 99.1 F 02/22/18 16:15 Pulse 88 02/22/18 16:15 Resp 18 02/22/18 16:15 BP 115/78 02/22/18 16:15 Pulse Ox 98 02/22/18 16:15 Weight: 112 kg NPO (# of Hours): > 8 hrs - HEENT Pupil (Motor): Pupils equal, EOMI Mallampati: III Teeth: Edentulous Oral Opening: Less than or equal to 3 - CANT HOOKER LOC: Oriented CANT HOOKER Motor: Normal RUE, Normal LUE, Normal RLE, Normal LLE, Normal Face - Cardiac Rhythm: Regular Murmur: None - Pulmonary Breath Sounds: bilateral Clear Respiratory Effort: Symmetrical Anesthesia Assess/Plan ASA Score: 3 Level of consciousness: Cooperative Anesthetic Plan: General Monitoring Plan: Standard Monitors Recovery Plan: PACU
[2018-02-22] MEDS ORDERED: 0.9 % Sodium Chloride 1,000 ML IVC SCH (17:45)
[2018-02-22] MEDS ORDERED: *HR* FentaNYL (PF) 100 MCG/2 ML VIAL ONE (18:00)
[2018-02-22] MEDS ORDERED: *HR* Heparin 5,000 UNIT/ML VIAL SQ SCH (18:00)
[2018-02-22] MEDS ORDERED: *HR* Propofol 200 MG/20 ML VIAL IVP ONE ×2 (18:00→18:59)
[2018-02-22] MEDS ORDERED: *HR* Midazolam HCl 2 MG/2 ML VIAL ONE (18:00)
[2018-02-22] MEDS ORDERED: Lidocaine -MPF 2% 2 ML VIAL ONE (18:01)
[2018-02-22] MEDS ORDERED: *HR* Succinylcholine 200 MG/10 ML VIAL IVP ONE (18:01)
[2018-02-22] MEDS ORDERED: Albuterol 2.5 MG/3 ML NEBULIZER ONE (18:20)
[2018-02-22] MEDS: Ringers Solution, Lactated 1,000 ML IVC SCH ×2 (18:20→19:40)
[2018-02-22] MEDS ORDERED: Albuterol 2.5 MG/3 ML NEBULIZER IH ONE (18:20)
[2018-02-22] MEDS ORDERED: CefOXitin 2,000 MG VIAL ONE (18:44)
[2018-02-22] MEDS ORDERED: cefOXitin 2,000 MG in Water for inj. (sterile) 20 ML 20 ML IVP ONE (18:48)
[2018-02-22] MEDS ORDERED: *HR* HYDROmorphone (PF) 1 MG/ML SYRINGE IVP PRN (19:20)
[2018-02-22] MEDS ORDERED: *HR* OxyCODONE Immed Rel 5 MG TABLET PO PRN (19:20)
--- NOTE | 2018-02-22 20:09 | Operative Note ---
Date of procedure: 02/22/18 Pre-op diagnosis: acute appendicitis Post-op diagnosis: same Procedure: Laparoscopic appendectomy Complications: none immediate Anesthesia: ANA, local Surgeon: Kathleen Moreno Was there an pharmacy assistant present: No Estimated blood loss (cc): 10 Specimen: appendix Condition: stable Disposition: PACU Procedure in Detail: The patient was brought into the operating suite and placed supine on the operating table. Sign-in was performed and everyone was in agreement. Anesthesia was induced and patient was endotracheally intubated by anesthesia without incident. An OG tube was placed by anesthesia. Cristina catheter was placed by the circulating nurse. The abdomen was prepped and draped in the usual sterile fashion. A timeout was performed and again everyone was in agreement. Stab incision in the left upper quadrant was made with 11 blade and a Veress needle was placed through this and a water drop test confirmed placement and the abdomen was insufflated. A supraumbilical incision was made through the skin and the subcutaneous tissue with an 11 blade. Towel clamps were placed on either side of the umbilicus for retraction. S-retractors were used to dissect down to the anterior abdominal wall linea alba fascia. We then entered the abdomen with the 5 mm 0 degree laparoscope on a 5 mm X-favian trocar. The area under entry was visualized and there was no bleeding and no apparent bowel injury. We placed a suprapubic 5 mm port under direct visualization after first incising the skin with an 11 blade. The laparoscope was placed through this and we exchanged the supraumbilical port for a 12 mm port under direct visualization. We then placed another 5 mm port in the left lower quadrant position under direct visualization after first incising the skin with an 11 blade. The patient was placed in slight Trendelenburg left side down position. The cecum was located as was the appendix. The appendix was grasped and retracted anteriorly and caudally with a laparoscopic Rogelio. A [place] was used to dissect between the mesoappendix and the appendix at the base of the cecum. The mesoappendix was transected with a laparoscopic flex-ex ETS stapler using a white load. The appendix was transected at the base of the cecum with the same stapler utilizing a white load. The appendix was placed in a laparoscopic Endo Catch bag and removed via the supraumbilical incision site. Both staple lines were evaluated and there was no bleeding and both staple lines were intact. The area was irrigated with sterile saline which was then suctioned free from the abdomen. The insufflation was suctioned free from the abdomen and all trochars removed. We closed the abdominal wall at the supraumbilical incision site with an 0 Vicryl [id number] stitch. A 30 cc of 0.5% Marcaine was injected subcutaneously at the 3 port sites. The skin at the two 5 mm port sites was closed with 4-0 Monocryl interrupted subcuticular stitches. The skin at the supraumbilical incision site was closed with a 4-0 Monocryl running subcuticular stitch. Steri-Strips were applied to the wounds. Cristina catheter was removed. The patient was extubated in the OR and tolerated the procedure well and was taken to PACU after all lap and instrument counts were correct at the end of the case.
[2018-02-22] MEDS ORDERED: Ketorolac 15 MG/ML VIAL IVP PRN (20:42)
--- NOTE | 2018-02-22 20:45 | Anesthesia Evaluation Post Op ---
Date of Encounter: 02/22/18 Time of Encounter: 20:44 - Vital Signs Vital Signs: Vital Signs/O2 Sat, Most Current Temp Pulse Resp BP Pulse Ox 98.4 F 83 20 136/56 98 02/22/18 20:38 02/22/18 20:38 02/22/18 20:38 02/22/18 20:38 02/22/18 20:38 - Lungs Lungs: Clear Ascult./Percussion - Cardiovascular Regular Rate - Mental Status Mental Status: Alert & Oriented, Answers Appropriately - Pain Pain Scale: 0 Pain Scale used: Numeric (1 - 10) - Nausea Vomiting Nausea Vomiting: Not Present - Hydration Hydration: Tolerates oral liquids, Has not voided - Discharge PostOp Status: Transfer Patient to floor
[2018-02-22] MEDS: 0.9 % Sodium Chloride 1,000 ML IVC SCH (21:18)
[2018-02-22] MEDS: Ipratropium/Albuterol Neb 3 ML IH SCH (21:18)
[2018-02-22] MEDS ORDERED: Ipratropium/Albuterol Neb 3 ML IH SCH (22:00)
[2018-02-22] MEDS: Gabapentin 300 MG CAPSULE PO SCH (23:40)
[2018-02-22] MEDS: Divalproex (12 HR) 500 MG TABLET PO SCH (23:40)
[2018-02-22] MEDS: Piperacillin/Tazobactam 3.375 GM in 0.9 % Sodium Chloride Mini Bag 100 ML IVPB SCH (23:41)
[2018-02-22] MEDS: *HR* OxyCODONE/APAP 5/325 TABLET PO PRN (23:48)
[2018-02-23] MEDS ORDERED: Piperacillin/Tazobactam 3.375 GM in 0.9 % Sodium Chloride Mini Bag 100 ML IVPB SCH
[2018-02-23 01:38] LABS: Basophils % 0.2 %; Eosinophils % 0.1 %; Hematocrit 43.2 % (35.3-44.9); Immature Granulocytes % 0.5 % (0-4); Lymphocytes # 1.4 K/mcL (0.6-4.6); Lymphocytes % 8.3 %; Mean Corpuscular HGB Conc 32.4 g/dL (31.6-35.5); Mean Corpuscular Volume 95.8 fL (83.0-100.0); Mean Platelet Volume 10.2 fL (9.4-12.4); Monocytes # 0.6 K/mcL (0.0-1.3); Monocytes % 3.7 %; Neutrophils # 14.5 K/mcL (1.6-8.9); Platelet Count 220 K/mcL (140-400); Red Blood Count 4.51 M/mcL (3.82-4.97); Red Cell Distribution Width 13.2 % (11.5-14.5); Segmented Neutrophils % 87.2 %
[2018-02-23 01:56] LABS: BUN/Creatinine Ratio 18 (6-26); Blood Urea Nitrogen 11 mg/dL (6-20); Calcium 8.6 mg/dL (8.6-10.3); Carbon Dioxide 24 mEq/L (23-29); Chloride 108 mEq/L (98-107); Glucose 136 mg/dL (70-105); Osmolality,Calculated 289 (280-300); Potassium 3.9 mEq/L (3.5-5.1); Sodium 139 mEq/L (136-145); eGFR For Non-African Americans > 60 (> 60)
[2018-02-23] MEDS: Ipratropium/Albuterol Neb 3 ML IH SCH ×4 (04:08→21:40)
[2018-02-23] MEDS: *HR* Heparin 5,000 UNIT/ML VIAL SQ SCH ×2 (05:15→16:58)
[2018-02-23] MEDS ORDERED: Pantoprazole 40 MG VIAL IVP SCH (09:00)
[2018-02-23] MEDS: Pantoprazole 40 MG VIAL IVP SCH (09:25)
[2018-02-23] MEDS: Piperacillin/Tazobactam 3.375 GM in 0.9 % Sodium Chloride Mini Bag 100 ML IVPB SCH ×2 (09:25→16:46)
[2018-02-23] MEDS: Gabapentin 300 MG CAPSULE PO SCH ×3 (09:25→20:46)
[2018-02-23] MEDS: BuPROPion XL (24 HR) 150 MG TABLET PO SCH (09:25)
[2018-02-23] MEDS: Divalproex (12 HR) 500 MG TABLET PO SCH ×2 (09:25→20:46)
[2018-02-23] MEDS: (Fluticasone/Vilanterol [Breo Ellipta 100-25 Mcg Inh]) IH SCH (09:26)
--- NOTE | 2018-02-23 12:09 | General Surgery Progress Note ---
Date of Encounter: 02/23/18 Time of Encounter: 12:07 - Assessment and Plan (1) Leukocytosis Current Visit: Yes Status: Acute elevated, pus in abdomen during appendectomy, continue iv antibiotics ok diet - tolerating, trend wbc Qualifiers: Leukocytosis type: unspecified Qualified Code(s): D72.829 - Elevated white blood cell count, unspecified (2) DVT prophylaxis Current Visit: No Status: Acute (3) COPD (chronic obstructive pulmonary disease) Current Visit: No Status: Acute Qualifiers: COPD type: unspecified COPD Qualified Code(s): J44.9 - Chronic obstructive pulmonary disease, unspecified (4) Acute appendicitis Current Visit: No Status: Acute pod 1 lap appy pus in abdomen during procedure continue abx ok regular diet prn pain control gi/dvt prophylaxis continue home meds Qualifiers: Acute appendicitis type: with localized peritonitis Appendicitis gangrene presence: without gangrene Appendicitis perforation presence: without perforation Appendicitis abscess presence: without abscess Qualified Code(s): K35.30 - Acute appendicitis with localized peritonitis, without perforation or gangrene (5) Seizure disorder Current Visit: No Status: Chronic continue home meds Subjective Patient reports: no new complaints, feels better, still having pain, pain is less, tolerating a regular diet, flatus, no bowel movement, afebrile Objective Vital Signs - Last 8 Hours Temp Pulse Resp BP Pulse Ox 02/23/18 11:10 16 96 02/23/18 07:08 98.2 F 87 16 118/76 96 02/23/18 04:10 18 98 Intake and Output 02/22/18 02/23/18 02/23/18 23:59 07:59 15:59 Intake Total 1000 / 1000 100 / 100 1360 / 1360 Output Total 110 / 110 1050 / 1050 Balance 890 / 890 -950 / -950 1360 / 1360 Intake: IV Fluids 1000 / 1000 100 / 100 1000 / 1000 0.9 % Sodium Chloride 1,000 ML 1000 / 1000 @ 120 mls/hr IVC .Q8H20M [facility] Rx #:[id number] Lactated Ringers 1,000 ML @ 25 1000 / 1000 mls/hr IVC .Q24H [facility] Rx#: [id number] Zosyn 3.375 GM In 0.9 % Sodium 100 / 100 Chloride (Mini-Bag +) 100 ML @ 25 mls/hr IVPB Q8HR [facility] Rx#: [id number] Oral 0 / 0 360 / 360 Output: Urine 1050 / 1050 Estimated Blood Loss Urine Amount (Catheter) 100 / 100 Other: Meal Breakfast # Bowel Movements 0 Weight 111.9 kg 112.4 kg Patient Weight 02/23/18 23:59 Weight 112.4 kg - General physical appearance well developed, well nourished, no distress, obese - Eyes PERRL, normal ocular movement - ENT normal mucosa, normocephalic - Neck Neck exam: trachea midline - Respiratory normal expansion, normal respiratory effort - Cardiovascular Cardiovascular exam: Present: RRR - Abdomen Abdomen: Present: bowel sounds present, soft, tender (appropriate post op tenderness). Absent: guarding, rebound - Incision Incision: Present: clean and dry, intact - Integumentary no rash, no growths - Neurologic CN 2-12 grossly intact - Musculoskeletal normal gait, normal posture - Psychiatric oriented to time, oriented to person, oriented to place, speech is normal, memory intact - Labs 02/23/18 01:17 02/23/18 01:17 Vital Signs Temp Pulse Resp BP Pulse Ox 02/23/18 11:10 16 96 02/23/18 07:08 98.2 F 87 16 118/76 96 02/23/18 04:10 18 98 02/23/18 03:12 99.1 F 79 15 99/63 94 02/22/18 23:38 99.0 F 88 16 110/74 97 02/22/18 22:45 98.7 F 92 16 105/71 95 02/22/18 21:54 96 02/22/18 21:40 99.4 F 91 16 115/78 94 02/22/18 21:21 16 96 02/22/18 21:04 98.3 F 83 16 116/66 97 02/22/18 21:02 98.3 F 83 16 116/66 96 02/22/18 20:53 98.3 F 81 16 115/60 97 02/22/18 20:38 98.4 F 83 20 136/56 98 02/22/18 20:28 82 20 131/85 100 02/22/18 20:18 86 20 125/93 99 02/22/18 20:08 98.9 F 108 24 147/72 94 02/22/18 16:15 99.1 F 88 18 115/78 98 Intake and Output 02/22/18 02/23/18 02/23/18 23:59 07:59 15:59 Intake Total 1000 / 1000 100 / 100 1360 / 1360 Output Total 110 / 110 1050 / 1050 Balance 890 / 890 -950 / -950 1360 / 1360 Intake: IV Fluids 1000 / 1000 100 / 100 1000 / 1000 0.9 % Sodium Chloride 1,000 ML 1000 / 1000 @ 120 mls/hr IVC .Q8H20M [facility] Rx #:[id number] Lactated Ringers 1,000 ML @ 25 1000 / 1000 mls/hr IVC .Q24H [facility] Rx#: [id number] Zosyn 3.375 GM In 0.9 % Sodium 100 / 100 Chloride (Mini-Bag +) 100 ML @ 25 mls/hr IVPB Q8HR [facility] Rx#: [id number] Oral 0 / 0 360 / 360 Output: Urine 1050 / 1050 Estimated Blood Loss 10 / 10 Urine Amount (Catheter) 100 / 100 Other: Meal Breakfast # Bowel Movements 0 Weight 111.9 kg 112.4 kg Patient Weight 02/23/18 23:59 Weight 112.4 kg Short CBC 02/23/18 Range/Units 01:17 WBC 16.6 H (4.3-11.1) K/mcL Hgb 14.0 D (11.5-15.4) g/dL Hct 43.2 (35.3-44.9) % Plt Count 220 (140-400) K/mcL Neutrophils # 14.5 H (1.6-8.9) K/mcL BMP 02/23/18 Range/Units 01:17 Sodium 139 (136-145) mEq/L Potassium 3.9 (3.5-5.1) mEq/L Chloride 108 H (98-107) mEq/L Carbon Dioxide 24 (23-29) mEq/L BUN 11 (6-20) mg/dL Creatinine 0.60 (0.60-1.20) mg/dL Glucose 136 H (70-105) mg/dL Calcium 8.6 (8.6-10.3) mg/dL Consult Discharge Plan - Plan Referrals: Zachariah Senior [Primary Care Provider] -
--- NOTE | 2018-02-23 12:12 | Discharge Summary ---
<Kathleen Moreno - Last Filed: 02/23/18 12:10> Orders not resulted at time of discharge: Pending orders 02/22/18 17:19 EKG [ECG 12 lead ECG] [ECG] Stat 02/22/18 20:01 Surgical Pathology [PTH] Routine 02/24/18 04:00 CBC [Complete Blood Count] [HEME] AM 0400 Date of Encounter: 02/24/18 Time of Encounter: 09:00 - Discharge Diagnosis (1) Leukocytosis Priority: Secondary Status: Acute Qualifiers: Leukocytosis type: unspecified Qualified Code(s): D72.829 - Elevated white blood cell count, unspecified (2) DVT prophylaxis Priority: Secondary Status: Acute (3) COPD (chronic obstructive pulmonary disease) Priority: Secondary Status: Chronic Qualifiers: COPD type: unspecified COPD Qualified Code(s): J44.9 - Chronic obstructive pulmonary disease, unspecified (4) Acute appendicitis Priority: Primary Status: Acute Qualifiers: Acute appendicitis type: with localized peritonitis Appendicitis gangrene presence: without gangrene Appendicitis perforation presence: without perforation Appendicitis abscess presence: without abscess Qualified Code(s): K35.30 - Acute appendicitis with localized peritonitis, without perforation or gangrene (5) Seizure disorder Priority: Secondary Status: Chronic General Surgery Exam Initial Vital Signs Temp Pulse Resp BP Pulse Ox 99.1 F 88 18 115/78 98 02/22/18 16:15 02/22/18 16:15 02/22/18 16:15 02/22/18 16:15 02/22/18 16:15 - General physical appearance well developed, well nourished, no distress, obese - Eyes PERRL, normal ocular movement - ENT normal mucosa, normocephalic - Neck trachea midline - Respiratory normal expansion, clear to auscultation - Cardiovascular Cardiovascular exam: Present: RRR - Abdomen Abdomen general surgery: Present: bowel sounds present, soft, tender (appropriate post op tenderness) - Incision Incision: Present: clean and dry, intact - Integumentary Integumentary general surgery: Present: warm and dry - Neurologic Present: CN 2-12 grossly intact - Musculoskeletal Present: normal gait, normal posture - Psychiatric Psychiatric general surgery: Present: A&Ox3, speech is normal - Hospital Course Hospital course: Ms. Gardner is a 47 year old female who presented with recurrent appendicitis. She was taken in the OR on 12:15 2017 for an uncomplicated laparoscopic appendectomy. Patient had pus within the abdomen during the procedure. Postoperatively she continued on IV antibiotics. She started on a clear liquid diet and advanced as she can tolerate. Pain was controlled with by mouth Percocet. She was up ambulating well having appropriate bowel or bladder function. She was discharged home on 02.24.18 in stable condition - Time Spent with Patient Total time spent providing and/or coordinating discharge services: Less than 30 minutes - Discharge Medications Prescriptions: Oxycodone HCl/Acetaminophen [Percocet 5-325 mg Tablet] 1 each PO Q6HR PRN 6 Days #22 tablet PRN Reason: Pain Ciprofloxacin HCl [Cipro] 500 mg PO BID 7 Days #14 tablet Docusate Sodium [Colace] 100 mg PO BID #30 capsule metroNIDAZOLE [Flagyl] 500 mg PO TID 7 Days tablet Home Medications: Dexlansoprazole [Dexilant] 60 mg PO DAILY 11/18/17 [History] Divalproex (12 HR) [Depakote (12 HR)] 500 mg PO BID 11/18/17 [History] Gabapentin [Neurontin] 600 mg PO TID 11/18/17 [History] Simvastatin [Zocor] 40 mg PO HS 11/18/17 [History] BuPROPion XL (24 HR) [Wellbutrin Xl] 150 mg PO DAILY 11/19/17 [History] Calcium Carbonate/Vitamin D3 [Oyster Shell 250 mg + Vit D Tb] 1 tab PO BID 11/19/17 [History] Cholecalciferol (D-3) [Vitamin D] 5,000 unit PO DAILY 11/19/17 [History] Fluticasone/Vilanterol [Breo Ellipta 100-25 Mcg INH] 1 puff IH DAILY 11/19/17 [History] Isosorbide DInitrate [Isosorbide Dinitrate] 20 mg PO DAILY 11/19/17 [History] Magnesium Oxide [Magnesium] 400 mg PO BID 11/19/17 [History] Meloxicam [Mobic] 7.5 mg PO DAILY 11/19/17 [History] Potassium Chloride [K-Tab ER] 20 meq PO DAILY 11/19/17 [History] Ciprofloxacin HCl [Cipro] 500 mg PO BID 7 Days #14 tablet 02/23/18 [Rx] Docusate Sodium [Colace] 100 mg PO BID #30 capsule 02/23/18 [Rx] Oxycodone HCl/Acetaminophen [Percocet 5-325 mg Tablet] 1 each PO Q6HR PRN 6 Days #22 tablet 02/23/18 [Rx] metroNIDAZOLE [Flagyl] 500 mg PO TID 7 Days tablet 02/23/18 [Rx] Allergies/Adverse Reactions: Allergy/AdvReac Type Severity Reaction Status Date / Time No Known Allergies Allergy Verified 11/19/17 16:34 Date of admission: 02/22/18 15:51 Primary care physician: Zachariah Senior Discharging clinician: Kathleen Moreno Anticipated date of discharge: 02/24/18 Labs on day of discharge: Labs from last 24 hours 02/23/18 02/23/18 02/22/18 01:17 01:17 17:25 WBC 16.6 H RBC 4.51 Hgb 14.0 D Hct 43.2 MCV 95.8 MCH 31.0 MCHC 32.4 RDW 13.2 Plt Count 220 MPV 10.2 Immature Gran % 0.5 Seg Neutrophils % 87.2 Lymphocytes % 8.3 Monocytes % 3.7 Eosinophils % 0.1 Basophils % 0.2 Neutrophils # 14.5 H Lymphocytes # 1.4 Monocytes # 0.6 Eosinophils # 0.0 Basophils # 0.0 Sodium 139 Potassium 3.9 Chloride 108 H Carbon Dioxide 24 BUN 11 Creatinine 0.60 Est GFR ( Amer) > 60 Est GFR (Non-Af Amer) > 60 BUN/Creatinine Ratio 18 Glucose 136 H Calculated Osmolality 289 Calcium 8.6 Urine Test Negative - Patient Status Disposition: Home, Self-Care Condition: Good Overall status at discharge: patient is progressing back to baseline - Discharge Instructions Instructions: Laparoscopic Appendectomy (DC) Follow Up With: Zachariah Senior [Primary Care Provider] - Angie Rao PUBLIC POLICY MANAGER [Advanced Practice Nurse] - 03/14/18 8:45 am (2 weeks for postoperative laparoscopic appendectomy check) Additional Instructions: No lifting more than 20 pounds for 2 weeks. Okay to take a shower in 24 hours. No tub baths or pools for 1 week. Okay to ride in the car wearing a seatbelt and climb steps. No driving until off narcotics for 24 hours and able to react safely Remove Steri-Strips in 1 week Do not take pain medicine/narcotics on an empty stomach it will likely cause nausea and possibly vomiting. If pain medication is too strong okay to break in half - Diet and Activity Activity: increase activity as tolerated <Angie Rao - Last Filed: 02/24/18 08:29> Orders not resulted at time of discharge: Pending orders 02/22/18 20:01 Surgical Pathology [PTH] Routine Date of Encounter: 02/24/18 Time of Encounter: 08:25 - Discharge Diagnosis (1) Acute appendicitis Priority: Primary Status: Acute Qualifiers: Acute appendicitis type: with localized peritonitis Appendicitis gangrene presence: without gangrene Appendicitis perforation presence: without perforation Appendicitis abscess presence: without abscess Qualified Code(s): K35.30 - Acute appendicitis with localized peritonitis, without perforation or gangrene (2) COPD (chronic obstructive pulmonary disease) Priority: Secondary Status: Chronic Qualifiers: COPD type: unspecified COPD Qualified Code(s): J44.9 - Chronic obstructive pulmonary disease, unspecified General Surgery Exam Initial Vital Signs Temp Pulse Resp BP Pulse Ox 99.1 F 88 18 115/78 98 02/22/18 16:15 02/22/18 16:15 02/22/18 16:15 02/22/18 16:15 02/22/18 16:15 Vital Signs Temp Pulse Resp BP Pulse Ox 02/24/18 06:58 98.9 F 91 16 119/75 96 02/24/18 04:36 98.7 F 93 14 106/72 96 02/24/18 03:45 16 95 02/23/18 23:57 99.0 F 97 14 117/77 98 02/23/18 21:40 16 90 02/23/18 18:30 100.1 F H 108 14 112/64 95 02/23/18 16:02 16 90 02/23/18 14:56 98.9 F 94 16 110/61 94 02/23/18 11:10 16 96 Intake and Output 02/23/18 02/24/18 02/24/18 23:59 07:59 15:59 Intake Total 100 / 100 100 / 100 Output Total 200 / 200 0 / 0 400 / 400 Balance -100 / -100 100 / 100 -400 / -400 Intake: IV Fluids 100 / 100 Zosyn 3.375 GM In 0.9 % Sodium 100 / 100 Chloride (Mini-Bag +) 100 ML @ 25 mls/hr IVPB Q8HR [facility] Rx#: [id number] Oral 0 / 0 100 / 100 Output: Urine 200 / 200 0 / 0 400 / 400 Other: # Voids 1 Weight 112.7 kg Patient Weight 02/24/18 23:59 Weight 112.7 kg VITAL SIGNS: Reviewed. See [facility] GENERAL: In no apparent distress. HEENT: Normocephalic, atraumatic, pupils are equal and reactive, extraocular m otions intact, oropharynx is pink and moist, edentulous, there is no neck JVD noted. CHEST/RESPIRATORY: The thorax is free from signs of trauma. Lung sounds: decreased, course CARDIAC: Regular rate and rhythm. Normal S1 and S2, without murmurs, gallops, or rubs. VASCULAR: No Edema. 2+ peripheral pulses. ABDOMEN: soft, expected postoperative tenderness, hypoactive bowel sounds, mild ecchymosis in the midline incision. INCISION: Surgical incision is clean, dry, and intact. There are no signs of cellulitis or infection noted. MUSCULOSKELETAL: Good range of motion of all major joints. Extremities without clubbing, cyanosis or edema. NEUROLOGIC EXAM: Alert and oriented x 3. Speech normal. Follows commands. PSYCHIATRIC: Mood normal. SKIN: No rash or lesions. - Hospital Course Hospital course: She reported dizziness and nausea associated with coughing and attempting to have BM on 02/24/2018 (liley related to vasovagel as she has no other symptoms and quickly returned to baseline). She was treated with mucomyst and duonebs prior to d/c. - Time Spent with Patient Total time spent providing and/or coordinating discharge services: Date of admission: 02/22/18 15:51 Primary care physician: Zachariah Senior Discharging clinician: Kathleen Rao) Labs on day of discharge: Labs from last 24 hours 02/24/18 04:16 WBC 12.9 H RBC 4.14 Hgb 12.8 Hct 39.8 MCV 96.1 MCH 30.9 MCHC 32.2 RDW 13.4 Plt Count 194 MPV 10.0 Immature Gran % 0.4 Seg Neutrophils % 66.6 Lymphocytes % 22.0 Monocytes % 10.4 Eosinophils % 0.3 Basophils % 0.3 Neutrophils # 8.6 Lymphocytes # 2.8 Monocytes # 1.3 Eosinophils # 0.0 Basophils # 0.0 - Patient Status Overall status at discharge: patient is progressing back to baseline - Diet and Activity Activity: increase activity as tolerated Diet: advance to your usual diet
[2018-02-23] MEDS: 0.9 % Sodium Chloride 1,000 ML IVC SCH (14:55)
[2018-02-23] MEDS: *HR* OxyCODONE/APAP 5/325 TABLET PO PRN (16:54)
[2018-02-24] MEDS: Piperacillin/Tazobactam 3.375 GM in 0.9 % Sodium Chloride Mini Bag 100 ML IVPB SCH ×5 (03:02→23:18)
[2018-02-24] MEDS: Ipratropium/Albuterol Neb 3 ML IH SCH ×4 (03:45→21:36)
[2018-02-24 04:44] LABS: Basophils % 0.3 %; Eosinophils % 0.3 %; Hematocrit 39.8 % (35.3-44.9); Hemoglobin 12.8 g/dL (11.5-15.4); Immature Granulocytes % 0.4 % (0-4); Lymphocytes # 2.8 K/mcL (0.6-4.6); Mean Corpuscular HGB Conc 32.2 g/dL (31.6-35.5); Mean Corpuscular Hemoglobin 30.9 pg (28.0-33.3); Mean Corpuscular Volume 96.1 fL (83.0-100.0); Monocytes # 1.3 K/mcL (0.0-1.3); Monocytes % 10.4 %; Neutrophils # 8.6 K/mcL (1.6-8.9); Platelet Count 194 K/mcL (140-400); Red Blood Count 4.14 M/mcL (3.82-4.97); Red Cell Distribution Width 13.4 % (11.5-14.5); Segmented Neutrophils % 66.6 %
[2018-02-24] MEDS: *HR* Heparin 5,000 UNIT/ML VIAL SQ SCH ×2 (04:57→18:02)
[2018-02-24] MEDS: Ondansetron 4 MG/2 ML VIAL IVP PRN (08:03)
[2018-02-24] MEDS: BuPROPion XL (24 HR) 150 MG TABLET PO SCH (09:04)
[2018-02-24] MEDS: Divalproex (12 HR) 500 MG TABLET PO SCH ×2 (09:04→19:47)
[2018-02-24] MEDS: Gabapentin 300 MG CAPSULE PO SCH ×3 (09:04→19:47)
[2018-02-24] MEDS: Pantoprazole 40 MG VIAL IVP SCH (09:07)
[2018-02-24] MEDS: Acetylcysteine 10% 2 ML INHSOL IH SCH ×5 (09:43→23:32)
[2018-02-24] MEDS: (Fluticasone/Vilanterol [Breo Ellipta 100-25 Mcg Inh]) IH SCH (11:23)
--- NOTE | 2018-02-24 12:54 | General Surgery Progress Note ---
Addendum entered and electronically signed by Kathleen Moreno MD 02/24/18 18:27: patient seen and evaluated by myself, agree with TUB WASHER assessment and plan, she is having belching with clears, may be developing ileus, she will back of clears if continues to get sick after drinking, serial abdominal exams, wbc decreasing - continue iv antibiotics Original Note: Date of Encounter: 02/24/18 Time of Encounter: 12:52 - Assessment and Plan (1) Acute appendicitis Current Visit: Yes Status: Acute Date of procedure: 02/22/18 Pre-op diagnosis: acute appendicitis Post-op diagnosis: same Procedure: Laparoscopic appendectomy POD #[address] Moreno. Pathology remains pending. Pt was seen in morning rounds and stated she was feeling well, had passed flatus and pain was controlled. She was pended for d/c. 1245 the bedside RN notified surgery that the patient had a cup at bedside into which the patient said she was "coughing or spitting up into." RN concerned contents resembled vomitus. Upon further review with patient she appears to be having some reflux/vomiting. She reports feelings of "burping and then a little just comes up in my throat." She has aprox 200 ml in the cup at bedside. She feels the urge to have a BM. We will cancel her d/c, back her diet down to clears, and reassess in the am. CLD repeat am las add reglan continue supportive care and discomfort management continue iv ATBX Qualifiers: Acute appendicitis type: with localized peritonitis Appendicitis gangrene presence: without gangrene Appendicitis perforation presence: without perforation Appendicitis abscess presence: without abscess Qualified Code(s): K35.30 - Acute appendicitis with localized peritonitis, without perforation or gangrene (2) COPD (chronic obstructive pulmonary disease) Current Visit: Yes Status: Chronic mucomyst and duonebs, scheduled Smoking cessation encouraged. Pt states, "yeah. I am probably never going to quit." Qualifiers: COPD type: unspecified COPD Qualified Code(s): J44.9 - Chronic obstructive pulmonary disease, unspecified Subjective Patient reports: still having pain, pain is less, no bowel movement, nausea, vomiting, afebrile Objective Vital Signs - Last 8 Hours Temp Pulse Resp BP Pulse Ox 02/24/18 09:43 20 91 02/24/18 06:58 98.9 F 91 16 119/75 96 Intake and Output 02/23/18 02/24/18 02/24/18 23:59 07:59 15:59 Intake Total 100 / 100 200 / 200 240 / 240 Output Total 200 / 200 0 / 0 400 / 400 Balance -100 / -100 200 / 200 -160 / -160 Intake: IV Fluids 100 / 100 100 / 100 Zosyn 3.375 GM In 0.9 % Sodium 100 / 100 100 / 100 Chloride (Mini-Bag +) 100 ML @ 25 mls/hr IVPB Q8HR [facility] Rx#: [id number] Oral 0 / 0 100 / 100 240 / 240 Output: Urine 200 / 200 0 / 0 400 / 400 Other: Meal Breakfast Percent of Meal Consumed 0% # Voids 1 Weight 112.7 kg Patient Weight 02/24/18 23:59 Weight 112.7 kg - General physical appearance well nourished, no distress, no pain - Eyes normal ocular movement - ENT normal nares, normal mucosa, poor halfway, atraumatic, normocephalic - Neck Neck exam: trachea midline - Respiratory other (decreaed, course breath sounds) - Cardiovascular Cardiovascular exam: Present: RRR - Incision Incision: Present: clean and dry, intact - Integumentary no rash - Neurologic normal sensation - Musculoskeletal normal gait, normal posture - Psychiatric oriented to time, oriented to person, oriented to place, speech is normal, memory intact - Labs 02/24/18 04:16 02/23/18 01:17 Consult Discharge Plan - Plan Instructions: Laparoscopic Appendectomy (DC) Additional Instructions: No lifting more than 20 pounds for 2 weeks. Okay to take a shower in 24 hours. No tub baths or pools for 1 week. Okay to ride in the car wearing a seatbelt and climb steps. No driving until off narcotics for 24 hours and able to react safely Remove Steri-Strips in 1 week Do not take pain medicine/narcotics on an empty stomach it will likely cause nausea and possibly vomiting. If pain medication is too strong okay to break in half Referrals: Zachariah Senior [Primary Care Provider] - Angie Rao GARDEN WORKER [Advanced Practice Nurse] - 03/14/18 8:45 am (2 weeks for postoperative laparoscopic appendectomy check) Prescriptions: Oxycodone HCl/Acetaminophen [Percocet 5-325 mg Tablet] 1 each PO Q6HR PRN 6 Days #22 tablet PRN Reason: Pain Ciprofloxacin HCl [Cipro] 500 mg PO BID 7 Days #14 tablet Docusate Sodium [Colace] 100 mg PO BID #30 capsule metroNIDAZOLE [Flagyl] 500 mg PO TID 7 Days tablet
--- NOTE | 2018-02-24 14:59 | Electrocardiograph Report ---
[address] [place], [place] [address] Test Date: 2018-02-22 Pat Name: Shanna Gardner Department: 115 Room: 3A36 Gender: F Bul[place] Carpenter: : 1970 Requested By: Kathleen Moreno Order Number: [id number] Reading MD: Yfn Eaton Measurements Intervals [place] Rate: 98 P: 66 [place]: 153 QRS: 19 QRSD: 90 T: 31 QT: 334 QTc: 389 Interpretive Statements SINUS RHYTHM NONSPECIFIC ST & T-WAVE ABNORMALITY Electronically Signed On 02-24-2018 14:58:14 EST by Yfn Eaton
[2018-02-24] MEDS: Metoclopramide 10 MG/2 ML VIAL IVP SCH ×3 (15:19→23:19)
[2018-02-24] MEDS ORDERED: 0.9 % Sodium Chloride 1,000 ML ONE (15:44)
[2018-02-24] MEDS: 0.9 % Sodium Chloride 1,000 ML IVC SCH ×2 (18:03→23:17)
[2018-02-25] MEDS: Ondansetron 4 MG/2 ML VIAL IVP PRN (00:07)
[2018-02-25] MEDS: Ipratropium/Albuterol Neb 3 ML IH SCH ×3 (03:31→15:44)
[2018-02-25] MEDS: Acetylcysteine 10% 2 ML INHSOL IH SCH ×4 (03:31→15:44)
[2018-02-25 05:24] LABS: Basophils % 0.3 %; Eosinophils % 0.1 %; Hematocrit 41.6 % (35.3-44.9); Hemoglobin 13.1 g/dL (11.5-15.4); Immature Granulocytes % 0.4 % (0-4); Lymphocytes # 1.8 K/mcL (0.6-4.6); Lymphocytes % 13.8 %; Mean Corpuscular HGB Conc 31.5 g/dL (31.6-35.5); Mean Corpuscular Hemoglobin 30.5 pg (28.0-33.3); Mean Platelet Volume 10.3 fL (9.4-12.4); Monocytes # 1.2 K/mcL (0.0-1.3); Neutrophils # 9.7 K/mcL (1.6-8.9); Platelet Count 221 K/mcL (140-400); Red Blood Count 4.29 M/mcL (3.82-4.97); Red Cell Distribution Width 12.8 % (11.5-14.5); Segmented Neutrophils % 76.4 %
[2018-02-25 05:36] LABS: BUN/Creatinine Ratio 30 (6-26); Blood Urea Nitrogen 14 mg/dL (6-20); Calcium 8.8 mg/dL (8.6-10.3); Carbon Dioxide 21 mEq/L (23-29); Chloride 107 mEq/L (98-107); Glucose 113 mg/dL (70-105); Osmolality,Calculated 287 (280-300); Potassium 3.6 mEq/L (3.5-5.1); Sodium 138 mEq/L (136-145); eGFR For Non-African Americans > 60 (> 60)
[2018-02-25] MEDS: *HR* Heparin 5,000 UNIT/ML VIAL SQ SCH (05:39)
[2018-02-25] MEDS: Metoclopramide 10 MG/2 ML VIAL IVP SCH ×2 (05:39→11:50)
[2018-02-25] MEDS: 0.9 % Sodium Chloride 1,000 ML IVC SCH ×3 (07:27→08:00)
[2018-02-25] MEDS: Piperacillin/Tazobactam 3.375 GM in 0.9 % Sodium Chloride Mini Bag 100 ML IVPB SCH (08:01)
[2018-02-25] MEDS: (Fluticasone/Vilanterol [Breo Ellipta 100-25 Mcg Inh]) IH SCH (09:56)
[2018-02-25] MEDS: BuPROPion XL (24 HR) 150 MG TABLET PO SCH (10:15)
[2018-02-25] MEDS: Divalproex (12 HR) 500 MG TABLET PO SCH (10:15)
[2018-02-25] MEDS: Pantoprazole 40 MG VIAL IVP SCH (10:15)
[2018-02-25] MEDS: Gabapentin 300 MG CAPSULE PO SCH (10:15)
--- NOTE | 2018-02-25 11:54 | Discharge Summary ---
Orders not resulted at time of discharge: Pending orders 02/22/18 20:01 Surgical Pathology [PTH] Routine Date of Encounter: 02/25/18 Time of Encounter: 11:56 - Discharge Diagnosis (1) Acute appendicitis Priority: Primary Status: Resolved Qualifiers: Acute appendicitis type: with localized peritonitis Appendicitis gangrene presence: without gangrene Appendicitis perforation presence: without perforation Appendicitis abscess presence: without abscess Qualified Code(s): K35.30 - Acute appendicitis with localized peritonitis, without perforation or gangrene (2) COPD (chronic obstructive pulmonary disease) Priority: Secondary Status: Chronic Qualifiers: COPD type: unspecified COPD Qualified Code(s): J44.9 - Chronic obstructive pulmonary disease, unspecified (3) Postoperative ileus Priority: Secondary Status: Resolved Comments: She showed signs of a postoperative ileus on 02/24/2018 with small amount of vomiting and abdominal distention. She states the symptoms have completely resolved. She is passing flatus and having multiple bowel movements. She denies nausea and vomiting. General Surgery Exam Initial Vital Signs Temp Pulse Resp BP Pulse Ox 99.1 F 88 18 115/78 98 02/22/18 16:15 02/22/18 16:15 02/22/18 16:15 02/22/18 16:15 02/22/18 16:15 - General physical appearance well nourished, no distress, no pain - ENT poor long term - Neck trachea midline - Respiratory normal expansion, normal respiratory effort, clear to auscultation - Cardiovascular Cardiovascular exam: Present: RRR - Abdomen Abdomen general surgery: Present: bowel sounds present, soft, tender (Expected postoperative tenderness) - Incision Incision: Present: clean and dry, intact - Integumentary Integumentary general surgery: Present: warm and dry, no abnormal pigmentation - Neurologic Present: CN 2-12 grossly intact, normal coordination, normal sensation - Musculoskeletal Present: normal gait, normal posture - Psychiatric Psychiatric general surgery: Present: A&Ox3, appropriate, oriented to person, oriented to place, oriented to time, speech is normal, memory intact - Hospital Course Hospital course: Ms. Gardner is a 47 year old female who presented with recurrent appendicitis. She was taken to the operating room on 02/22/2018 for an uncomplicated appendectomy. She is noted to have had pus in the abdomen during the procedure. Postoperative antibiotics per IV were continued. She was started on a clear liquid diet and advanced as tolerated. She was set for discharge on 02/24/2018 when she began having a small amount of vomiting and increased abdominal pain. Her discharge was canceled, she was back down to a clear liquid diet, started on Reglan, and IV antibiotics continued. On 02/25/2018, she reports her abdominal symptoms have resolved. She is passing flatus, having multiple bowel mo vements, feels less distended and denies nausea or vomiting. She would like to be discharged and she would like to continue a full liquid diet. She states she will advance her diet at home "when she feels ready." We discussed this is an acceptable plan but if she decides to continue mostly a full liquid diet home she should ensure she is drinking a boost or Ensure twice daily to ensure she is getting protein. She is advised to remain on a soft diet for the next 5-7 days and advance as tolerated. We will begin d/c planning to home with a follow-up in 2 weeks. She has her d/c medications from 02/24/18 and no new prescriptions are provided. 1448 called bedside RN to review how patient did with lunch. Per RN, she tolerated her full liquid diet, denied abd pain, vomiting, or bloating. We can proceed with discharge. - Time Spent with Patient Total time spent providing and/or coordinating discharge services: - Discharge Medications Prescriptions: Oxycodone HCl/Acetaminophen [Percocet 5-325 mg Tablet] 1 each PO Q6HR PRN 6 Days #22 tablet PRN Reason: Pain Ciprofloxacin HCl [Cipro] 500 mg PO BID 7 Days #14 tablet Docusate Sodium [Colace] 100 mg PO BID #30 capsule metroNIDAZOLE [Flagyl] 500 mg PO TID 7 Days tablet Home Medications: Dexlansoprazole [Dexilant] 60 mg PO DAILY 11/18/17 [History] Divalproex (12 HR) [Depakote (12 HR)] 500 mg PO BID 11/18/17 [History] Gabapentin [Neurontin] 600 mg PO TID 11/18/17 [History] Simvastatin [Zocor] 40 mg PO HS 11/18/17 [History] BuPROPion XL (24 HR) [Wellbutrin Xl] 150 mg PO DAILY 11/19/17 [History] Calcium Carbonate/Vitamin D3 [Oyster Shell 250 mg + Vit D Tb] 1 tab PO BID 11/19/17 [History] Cholecalciferol (D-3) [Vitamin D] 5,000 unit PO DAILY 11/19/17 [History] Fluticasone/Vilanterol [Breo Ellipta 100-25 Mcg INH] 1 puff IH DAILY 11/19/17 [History] Isosorbide DInitrate [Isosorbide Dinitrate] 20 mg PO DAILY 11/19/17 [History] Magnesium Oxide [Magnesium] 400 mg PO BID 11/19/17 [History] Meloxicam [Mobic] 7.5 mg PO DAILY 11/19/17 [History] Potassium Chloride [K-Tab ER] 20 meq PO DAILY 11/19/17 [History] Ciprofloxacin HCl [Cipro] 500 mg PO BID 7 Days #14 tablet 02/23/18 [Rx] Docusate Sodium [Colace] 100 mg PO BID #30 capsule 02/23/18 [Rx] Oxycodone HCl/Acetaminophen [Percocet 5-325 mg Tablet] 1 each PO Q6HR PRN 6 Days #22 tablet 02/23/18 [Rx] metroNIDAZOLE [Flagyl] 500 mg PO TID 7 Days tablet 02/23/18 [Rx] Buspirone HCl [Buspar] 10 mg PO TID 02/25/18 [History] Allergies/Adverse Reactions: Allergy/AdvReac Type Severity Reaction Status Date / Time No Known Allergies Allergy Verified 11/19/17 16:34 Date of admission: 02/22/18 15:51 Primary care physician: Zachariah Senior Discharging clinician: Kathleen Rao) Anticipated date of discharge: 02/25/18 Labs on day of discharge: Labs from last 24 hours 02/25/18 02/25/18 04:34 04:34 WBC 12.7 H RBC 4.29 Hgb 13.1 Hct 41.6 MCV 97.0 MCH 30.5 MCHC 31.5 L RDW 12.8 Plt Count 221 MPV 10.3 Immature Gran % 0.4 Seg Neutrophils % 76.4 Lymphocytes % 13.8 Monocytes % 9.0 Eosinophils % 0.1 Basophils % 0.3 Neutrophils # 9.7 H Lymphocytes # 1.8 Monocytes # 1.2 Eosinophils # 0.0 Basophils # 0.0 Sodium 138 Potassium 3.6 Chloride 107 Carbon Dioxide 21 L BUN 14 Creatinine 0.47 L Est GFR ( Amer) > 60 Est GFR (Non-Af Amer) > 60 BUN/Creatinine Ratio 30 H Glucose 113 H Calculated Osmolality 287 Calcium 8.8 - Patient Status Disposition: Home, Self-Care Condition: Good - Discharge Instructions Instructions: Laparoscopic Appendectomy (DC) Follow Up With: Zachariah Senior [Primary Care Provider] - Angie Rao CNP [Advanced Practice Nurse] - 03/14/18 8:45 am (2 weeks for postoperative laparoscopic appendectomy check) Additional Instructions: No lifting more than 20 pounds for 2 weeks. Okay to take a shower in 24 hours. No tub baths or pools for 1 week. Okay to ride in the car wearing a seatbelt and climb steps. No driving until off narcotics for 24 hours and able to react safely Remove Steri-Strips in 1 week Do not take pain medicine/narcotics on an empty stomach it will likely cause nausea and possibly vomiting. If pain medication is too strong okay to break in half - Diet and Activity Activity: increase activity as tolerated Diet: other (You can discharged on the full liquid diet as you requested, advance your diet as tolerated, Ensure you are drinking protein such as Ensure or boost if you are not eating a regular meal)
[2018-02-25 15:24] VITALS: BP 135/82
== END 2018-02-25 16:58 | disposition home or self-care (01) ==
LOC: 3ANU
PROVIDERS: ADMIT Surgery; ATTEND Surgery